=== PATIENT | male | born 1985 | race Caucasian/White ===

== ENCOUNTER 2020-02-12 05:27 | Emergency (ER) | payer OTHER, SELFPAY ==
--- NOTE | ~2020-02-12 | XR_ITS ---
EXAMINATION: XR chest 1V portable DATE: 02/12/2020 06:30 INDICATION: Shortness of breath. TECHNIQUE: A single frontal view of the chest was obtained. COMPARISON: None. FINDINGS: The chest demonstrates clear lungs without pneumonia, pleural effusion, or pneumothorax. Th e heart size is normal. IMPRESSION: 1. No acute cardiopulmonary disease. Reviewed, dictated and finalized at location [facility]. [facility]
[2020-02-12 05:34] VITALS: BP 131/79; PULSE 103; RESP 16; TEMP 36.6; O2SAT 98
[2020-02-12 05:43] VITALS: PULSE 90; O2SAT 98
[2020-02-12 06:40] VITALS: BP 122/90; PULSE 96; RESP 15; O2SAT 98
[2020-02-12 06:40] LABS: Basophils Percent Auto 0.2 % (0.2-1.2); Eosinophils Percent Auto 0.4 % (0-4.4); Hematocrit 41.7 % (42.0-52.0); Hemoglobin 14.1 g/dL (14.0-18.0); Immature Granulocyte Absolute 0.05 K/mm3 (0.00-0.031); Immature Granulocyte Percent A 0.6 % (0-0.5); Lymphocytes Absolute Auto 1.54 K/mm3 (0.9-3.2); Lymphocytes Percent Auto 17.3 % (18.3-44.2); Mean Corpuscular HGB Conc 33.8 g/dl (32-36); Mean Corpuscular Hemoglobin 30.9 pg (26-34); Mean Corpuscular Volume 91.4 fl (80-100); Mean Platelet Volume 9.4 fl (7.4-10.4); Monocytes Absolute Auto 0.9 K/mm3 (0.1-0.6); Monocytes Percent Auto 9.7 % (2.6-8.5); Neutrophils Absolute Auto 6.4 K/mm3 (1.3-6.7); Neutrophils Percent Auto 71.8 % (45.5-73.1); Platelet Count Result 225 k/mm3 (150-375); Red Blood Count 4.56 M/mm3 (4.6-6.20); Red Cell Distribution Width 12.4 % (11.5-14.5); White Blood Count 8.9 K/mm3 (4.5-10.0)
--- NOTE | 2020-02-12 06:51 | ED.SOB ---
HPI - SOB/Dyspnea General Chief Complaint: Shortness of Breath/Dyspnea Stated Complaint: diarrhea, SOB, i know i have pneumonia Time Seen by Provider: 02/12/20 05:39 History of Present Illness HPI Narrative: Patient is a 34-year-old male who presents ER with complaints of diarrhea. Patient reports he was recently hospitalized at [facility] for methamphetamine overdose for which she was in the ICU for couple of days. Upon being taken off of ventilator he reports he was diagnosed with pneumonia and then he signed out [employer]. Reports since then he has been having diarrhea about 6 times a day. No blood in his stool. Unsure about his Covid status. Patient reports occasional cough and shortness of breath. No chest pain/chest pressure. Related Data Allergies Allergy/AdvReac Type Severity Reaction Status Date / Time No Known Allergies Allergy Verified 02/12/20 07:03 Review of Systems Review of Systems: All systems reviewed & are unremarkable except as noted in HPI and below Constitutional: Constitutional: Denies chills, Denies fever(s) and Reports weakness ENT: Denies nasal congestion and Denies sore throat Cardiovascular: Cardiovascular: Denies chest pain and Denies radiating jaw, neck or arm pain Respiratory: Respiratory: Reports cough, Reports dyspnea and Denies wheezing Gastrointestinal: Gastrointestinal: Denies abdominal pain, Reports diarrhea, Reports nausea and Denies vomiting PMFSH Past Medical History Medical History (Updated 02/12/20 @ 07:21 by Freddie Zamora MD) Hepatitis C Surgical History Surgical History (Updated 02/12/20 @ 07:19 by Freddie Zamora MD) No history of previous surgery Social History Social History (Updated 02/12/20 @ 07:19 by Freddie Zamora MD) Substance use type: methamphetamine Exam Narrative: Exam Narrative: GENERAL: Well-appearing, well-nourished, and in no acute distress. HEAD: Normocephalic, atraumatic. CHEST: Clear to auscultation. No respiratory distress. HEART: Regular rate and rhythm. Normal peripheral pulses. ABDOMEN: Soft, nontender, nondistended. EXTREMITIES: Normal range of motion. No edema. SKIN: Warm, dry, no rash. NEURO: Alert and oriented x3. PSYCH: Normal mood and affect. Course Course Emergency Course: Unremarkable evaluation with exception of transaminitis. Patient may be having slight flare of his hepatitis C. Will discharge with antiemetics for home. He has been hydrated. Vital Signs Vital signs: Vital Signs Temperature 97.8 F 02/12/20 05:34 Pulse Rate 103 H 02/12/20 05:34 Respiratory Rate 16 02/12/20 05:34 Blood Pressure 131/79 02/12/20 05:34 Pulse Oximetry 98 02/12/20 05:34 Temperature 97.8 F 02/12/20 05:34 Pulse Rate 96 02/12/20 06:40 Respiratory Rate 15 02/12/20 06:40 Blood Pressure 122/90 02/12/20 06:40 Pulse Oximetry 98 02/12/20 06:40 MDM - SOB/Dyspnea Lab Data Result diagrams: 02/12/20 06:35 02/12/20 06:35 Labs: Lab Results 02/12/20 02/12/20 Range/Units 06:35 06:35 WBC 8.9 (4.5-10.0) K/mm3 RBC 4.56 L (4.6-6.20) M/mm3 Hgb 14.1 (14.0-18.0) g/dL Hct 41.7 L (42.0-52.0) % MCV 91.4 (80-100) fl MCH 30.9 (26-34) pg MCHC 33.8 (32-36) g/dl RDW 12.4 (11.5-14.5) % Plt Count 225 (150-375) k/mm3 MPV 9.4 (7.4-10.4) fl Immature Gran % (Auto) 0.6 H (0-0.5) % Neut % (Auto) 71.8 (45.5-73.1) % Lymph % (Auto) 17.3 L (18.3-44.2) % Randall % (Auto) 9.7 H (2.6-8.5) % Eos % (Auto) 0.4 (0-4.4) % Baso % (Auto) 0.2 (0.2-1.2) % Lymph # (Auto) 1.54 (0.9-3.2) K/mm3 Randall # (Auto) 0.9 H (0.1-0.6) K/mm3 Eos # (Auto) 0.0 (0-0.3) K/mm3 Baso # (Auto) 0.0 (0.0-0.1) K/mm3 Abs Immat Gran (auto) 0.05 H (0.00-0.031) K/mm3 Absolute Neuts (auto) 6.4 (1.3-6.7) K/mm3 Absolute Nucleated RBC 0.0 (0.0-0.012) K/mm3 Nucleated RBC % 0.0 (0.0-0.2) % Sodium 139 (137-145) mmol/
[2020-02-12 06:55] LABS: Potassium 3.9 mmol/L (3.4-5.0)
[2020-02-12 06:56] LABS: Alanine Aminotransferase 267 U/L (4-50); Albumin Level 3.7 g/dL (3.5-5.1); Alkaline Phosphatase 55 U/L (38-126); Anion Gap 8 mmol/L (8-16); Bilirubin,Total 0.9 mg/dL (0.2-1.3); Blood Urea Nitrogen 18 mg/dL (9-20); Calcium 9.1 mg/dL (8.4-10.2); Carbon Dioxide 28 mmol/L (22-30); Chloride 103 mmol/L (98-107); Estimated CRCL calculation 114 ml/min; Estimated Glomerular Filt Rate > 60; Glucose 91 mg/dL (75-110); Sodium 139 mmol/L (137-145)
[2020-02-12] MEDS: SODIUM CHLORIDE 0.9% IV 1,000 ML 999 ML IV CONT (07:03)
[2020-02-12 07:04] LABS: Aspartate Amino Transferase 693 U/L (17-59)
[2020-02-12 07:36] VITALS: BP 132/88; PULSE 86; RESP 17; O2SAT 98
== END 2020-02-12 07:38 | disposition home or self-care (01) ==
PROVIDERS: Emergency Provider Emergency Medicine
DX: R19.7 Diarrhea, unspecified (principal); R74.01 Elevation of levels of liver transaminase levels; Z86.19 Personal history of other infectious and parasitic diseases
CPT/HCPCS: 36415; 71045; 80053; 85025; 96360; 99283; J7030